=== PATIENT | male | born 1980 | race Caucasian/White ===

== ENCOUNTER → 2018-10-15 17:43 | Outpatient (CLI) | payer OTHER, SELFPAY ==
--- NOTE | 2018-10-15 17:47 | DI.MRI.S_ITS ---
PROCEDURE: MR WRIST LT WO CON INDICATIONS: DISPLACED FRACTURE OF MIDDLE THIRD OF LEFT NAVICULAR TECHNIQUE: Noncontrast coronal proton density fast spin echo and T2 fast spin echo with fat saturation; coronal 3-D gradient echo, axial T1 spin echo and T2 fast spin echo with fat saturation, sagittal T1 spin echo through the wrist. COMPARISON: [facility] Outside Film, CR, XR WRIST 3+ VIEWS LEFT, 07/13/2018, 13:29. [facility] Outside Film, CT, CT WRIST LEFT WITHOUT CONTRAST, 07/20/2018, 14:10. FINDINGS: Image quality: Excellent. Bones and cartilage: The carpal bones are normally aligned. There is a subacute appearing transverse fracture through proximal waist of scaphoid with mild marrow edema at within scaphoid. Well-corticated margin at the fracture site is seen with a 1 mm gap concerning for nonunion. There is no evidence of avascular necrosis of the scaphoid. No other area of abnormal marrow signal is seen. No other fracture or dislocation is noted. No evidence for avascular necrosis. Overlying cartilage surfaces appear normal. Carpal ligaments: The scapholunate and lunotriquetral ligaments appear intact. In the absence of intra-articular contrast, the extrinsic carpal ligaments are not well identified. On sagittal images, the pisohamate ligament appears intact. Triangular fibrocartilage complex: The triangular fibrocartilage appears intact. The adjacent meniscal homolog appears normal in the absence of intra-articular contrast. The extensor carpi ulnaris tendon is normal in location and morphology. Tendons and soft tissues: The carpal tunnel structures appear normal, including the median nerve. The ulnar nerve appears normal within Guyon's canal. All six extensor tendon compartments demonstrate normal morphology, without pathologic tendon sheath fluid. No soft tissue ganglion cysts. IMPRESSION: 1. Transverse fracture through waist of scaphoid with mild residual marrow edema. Well-corticated fracture margin with 1 mm gap concerning for nonunion. No definite MR evidence of avascular necrosis. No other area of abnormal marrow signal. 2. Triangular fibrocartilage complex is grossly intact. 3. Wrist tendons and ligaments are grossly intact.. Dictated by: Sebas Mora M.D. on 10/16/2018 at 8:39 Approved by: Sebas Mora M.D. on 10/16/2018 at 8:45
== END ==
PROVIDERS: Family Provider Family Medicine; PCP Family Medicine; Visit Provider Orthopaedic Surgery
DX: S62.022K Displaced fracture of middle third of navicular [scaphoid] bone of left wrist, subsequent encounter for fracture with nonunion (principal)
CPT/HCPCS: 73221

== ENCOUNTER 2020-11-11 14:46 | Emergency (ER) | payer OTHER, SELFPAY ==
[2020-11-11 15:13] VITALS: BP 160/107; PULSE 111; RESP 16; TEMP 36.9; O2SAT 97; BMI 25.1
== END 2020-11-11 15:38 | disposition left against medical advice (07) ==
PROVIDERS: Emergency Provider Emergency Medicine; Family Provider Family Medicine; PCP Family Medicine
CPT/HCPCS: 99281

== ENCOUNTER 2021-01-05 13:46 | Emergency (ER) | payer OTHER, SELFPAY ==
[2021-01-05] VITALS (11 sets, daily range): BP systolic 148–165; BP diastolic 82–97; PULSE 113–128; RESP 18–26; TEMP 36.1; O2SAT 94–99
--- NOTE | 2021-01-05 14:09 | ED_ITS ---
HPI - Neuro Symptoms/Deficit General Chief Complaint: Neuro Symptoms/Deficit Stated Complaint: confusion, red faced,cold sweats Time Seen by Provider: 01/05/21 14:03 Source: patient Mode of arrival: Ambulatory Limitations: no limitations History of Present Illness HPI Narrative: Patient is a 40-year-old male who arrives by private vehicle for evaluation of confusion, sweating, shaking, red face. He states the symptoms started this morning. He is unsure exactly when they started. He was at work when a occurred. He was told to come to the emergency department by his coworkers. He states that he is not quite as red face is he was earlier in the day but is still somewhat shaking and also sweating. He denies any other symptoms. Has never had anything like this in the past. Denies trauma. Denies drinking alcohol, denies any other drugs, and denies working with any chemicals at work. Related Data Home Medications Medication Instructions Recorded Confirmed No Known Home Medications 01/05/21 01/05/21 Allergies Allergy/AdvReac Type Severity Reaction Status Date / Time No Known Drug Allergies Allergy Verified 01/05/21 14:18 Review of Systems Constitutional Constitutional: Reports chills, Denies fever(s) and Denies headache(s) Eyes Eyes: Denies change in vision ENT Ears, Nose, Mouth, and Throat: Denies headache(s) and Denies sore throat Cardiovascular Cardiovascular: Denies chest pain, Denies rapid heart rate, Denies lightheadedness and Denies dyspnea Respiratory Respiratory: Denies cough and Denies dyspnea Gastrointestinal Gastrointestinal: Denies abdominal pain, Denies nausea and Denies vomiting Genitourinary Genitourinary: Denies dysuria Genitourinary: Denies dysuria Musculoskeletal Musculoskeletal: Denies numbness Integumentary/Breasts Comments: [place] Neurologic Neurologic: Reports confusion (Earlier today), Denies headache(s) and Denies numbness Comments: Shaking upper extremities Psychiatric Psychiatric: Denies anxiety and Reports confusion (Earlier today) Hematologic/Lymphatic Hematologic/Lymphatic: Denies easy bleeding and Denies easy bruising Allergic/Immunologic Allergic/Immunologic: Denies urticaria Patient History Medical History Sprain of right ankle Social History Smoking Status: Unknown if ever smoked Smoking Status: Unknown if ever smoked alcohol intake frequency: a few times a week Substance Use Type: does not use Exam Initial Vital Signs Initial Vital Signs: Vital Signs Temperature 96.9 F L 01/05/21 13:47 Pulse Rate 128 H 01/05/21 13:47 Respiratory Rate 22 01/05/21 13:47 Blood Pressure 158/92 H 01/05/21 13:47 Pulse Oximetry 98 01/05/21 13:47 Const General: cooperative and disheveled Limitations: mental status not altered HENCT Head: normal to inspection and No abrasion Eyes General: appearance normal, both eyes and all related structures Resp Effort & Inspection: not labored and tachypneic Auscultation: clear to auscultation bilaterally Cardio Rate: tachycardic Rhythm: regular rhythm Pulses: radial pulses present GI Inspection: non-distended Palpation: soft and No guarding Skin Lesions: no lesions Rashes: no rashes Neuro General: patient alert, patient awake and patient oriented x3 Cognition: normal cognition Speech: speech normal Motor: muscle tone normal throughout Sensory Exam: no sensory deficits noted Coordination: [id number] test normal Other: Trembling bilateral upper extremities Extrem General: normal to inspection and capillary refill normal Psych Appearance: disheveled Scores GCS [place] coma scale eye opening: Spontaneous [place] coma scale verbal response: Orientated [place] coma scale motor response: Obey commands [place] coma scale total score: 15 Course Orders Ordered: ED Orders 01/05/21 14:02 D Dimer Stat 01/05/21 14:05 Complete Blood Count AUTO DIFF Stat Comprehensive Metabolic Panel Stat Ethanol (ETOH) Stat Ketones (Beta-Hydroxybutyrate) Stat Lipase Stat Thyroid Stimulating Hormone Stat Troponin & CK Cardiac Panel Stat 01/05/21 15:32 CT angio chest PE protocol Stat 01/05/21 15:35 Urinalysis and Microscopic Stat Urine Drug Screen, Rapid Stat 01/05/21 16:05 Consult to [facility] - [place] Stat Venous Blood Gas Stat Discontinued Medications Sodium Chloride (Normal Saline 0.9%) 1,000 mls @ 1,000 mls/hr IV BOLUS ONE Stop: 01/05/21 15:12 Last Infusion: 01/05/21 15:33 Dose: 0 mls/hr Documented by: Admin: 01/05/21 14:21 Dose: 1,000 mls/hr Documented by: DIVYA Sodium Chloride (Normal Saline 0.9%) 1,000 mls @ 1,000 mls/hr IV BOLUS ONE Stop: 01/05/21 16:31 Last Infusion: 01/05/21 16:36 Dose: 0 mls/hr Documented by: Admin: 01/05/21 15:34 Dose: 1,000 mls/hr Documented by: DIVYA Lorazepam (Lorazepam 2 Mg/Ml Inj) 1 mg IV NOW ONE Stop: 01/05/21 14:10 Last Admin: 01/05/21 14:21 Dose: 1 mg Documented by: DIVYA Phenobarbital (Phenobarbital 65 Mg/Ml Vial) 260 mg IV NOW ONE Stop: 01/05/21 16:06 Last Admin: 01/05/21 16:39 Dose: 260 mg Documented by: DIVYA Vital Signs Vital signs: Vital Signs - 8 hr 01/05/21 13:47 01/05/21 14:28 01/05/21 14:30 Temperature 96.9 F L Pulse Rate 128 H 118 H 117 H Respiratory Rate 22 26 H 19 Blood Pressure 158/92 H 160/87 H Pulse Oximetry 98 95 94 01/05/21 15:00 01/05/21 15:27 01/05/21 15:30 Temperature Pulse Rate 118 H 125 H 123 H Respiratory Rate 21 18 20 Blood Pressure 163/93 H 156/89 H Pulse Oximetry 95 97 01/05/21 15:48 01/05/21 16:00 01/05/21 16:30 Temperature Pulse Rate 126 H 123 H 126 H Respiratory Rate 22 21 20 Blood Pressure 162/97 H 155/92 H 158/96 H Pulse Oximetry 96 95 97 01/05/21 17:00 01/05/21 17:30 Temperature Pulse Rate 122 H 113 H Respiratory Rate 18 23 Blood Pressure 165/97 H 148/82 H Pulse Oximetry 99 MDM - Neuro Symptoms/Deficit Lab Data Attestation: I reviewed the patient's lab results. Result diagrams: 01/05/21 14:05 01/05/21 14:05 Labs: Lab Results 01/05/21 01/05/21 01/05/21 Range/Units 14:02 14:05 14:05 WBC 9.9 (4.5-11.0) X10^3/uL RBC 4.98 (4.5-5.9) X10^6/uL Hgb 15.7 (13.5-17.5) g/dL Hct 46.1 (41-53) % MCV 92.7 (80-100) fL MCH 31.5 (26-34) PG MCHC 34.0 (30-36) % RDW 15.1 H (11.6-14.8) % Plt Count 212 (150-400) X10^3/uL Neut % (Auto) 84.1 H (50-75) % Lymph % (Auto) 7.2 L (25-40) % [place] % (Auto) 7.9 (3-14) % Eos % (Auto) 0.1 L (2-4) % Baso % (Auto) 0.7 (0-2) % Neut # (Auto) 8400 H (3322-1768) /uL Lymph # (Auto) 700 L (8063-3488) /uL [place] # (Auto) 800 (0-900) /uL Eos # (Auto) 0 (0-450) /uL Baso # (Auto) 100 (0-100) /uL D-Dimer 316 H (<230) ng/mL VBG pH (7.33-7.43) VBG pCO2 (45-50) mmHg VBG pO2 (35-45) mmHg VBG HCO3 (23-28) mmol/L VBG Total CO2 (24-29) mmol/L VBG O2 Saturation (70-75) % VBG Base Excess (0-4) mmol/L Sodium 134 L (137-145) mmol/L Potassium 4.1 (3.4-5.1) mmol/L Chloride 96 L (98-107) mmol/L Carbon Dioxide 16 L (22-32) mmol/L BUN 10 (9-20) mg/dL Creatinine 0.86 (0.66-1.25) mg/dL Estimated GFR > 60.0 (>60) mL/min BUN/Creatinine Ratio 11.6 (6-22) Glucose 175 H (70-100) mg/dL Calcium 9.6 (8.4-10.2) mg/dL Total Bilirubin 1.0 (0.2-1.3) mg/dL AST 85 H (17-59) IU/L ALT 94 H (<50) IU/L Alkaline Phosphatase 57 (38-126) U/L Total Creatine Kinase 205 H (55-170) U/L CK-MB (CK-2) 1.20 (<2.37) ng/mL CK-MB (CK-2) Rel Index 0.6 L (1.5-5.0) % Troponin I < 0.012 (0.01-0.034) ng/mL Total Protein 8.7 H (6.3-8.2) g/dL Albumin 5.4 H (3.5-5.0) g/dL Globulin 3.3 (1.7-4.1) g/dL Albumin/Globulin Ratio 1.6 (1.0-2.8) Lipase 85 (23-300) U/L TSH (0.47-4.68) uIU/mL Urine Color Urine Appearance Urine pH (4.5-8.0) Ur Specific [place] (1.000-1.035) Urine Protein (Negative) Urine Glucose (UA) (Negative) g/dL Urine Ketones (NEGATIVE) Urine Occult Blood (Negative) Urine Nitrate (Negative) Urine Bilirubin (NEGATIVE) Urine Urobilinogen (0.2) E.U./dL Ur Leukocyte Esterase (NEGATIVE) Urine RBC (0-5/HPF) Urine WBC (0-5/HPF) Uric Acid Crystals (None) Amorphous Sediment Urine Bacteria (None) Hyaline Casts (None) Ur Culture Indicated? U Opiates 300ng/mL cut (Negative) Ur Oxycodone Screen (Negative) Urine Methadone Screen (Negative) Ur Barbiturates Screen (Negative) U Tricyclic Antidepress (Negative) Ur Phencyclidine Scrn (Negative) Ur Amphetamines Screen (Negative) U Methamphetamines Scrn (Negative) Ur MDMA Scrn (Ecstasy) (Negative) U Benzodiazepines Scrn (Negative) Urine Cocaine Screen (Negative) U Marijuana (THC) Screen (Negative) Ethyl Alcohol < 10 ( - 10) mg/dL Ketones (<0.27) mmol/L 01/05/21 01/05/21 01/05/21 Range/Units 14:05 14:05 15:35 WBC (4.5-11.0) X10^3/uL RBC (4.5-5.9) X10^6/uL Hgb (13.5-17.5) g/dL Hct (41-53) % MCV (80-100) fL MCH (26-34) PG MCHC (30-36) % RDW (11.6-14.8) % Plt Count (150-400) X10^3/uL Neut % (Auto) (50-75) % Lymph % (Auto) (25-40) % [place] % (Auto) (3-14) % Eos % (Auto) (2-4) % Baso % (Auto) (0-2) % Neut # (Auto) (9049-3203) /uL Lymph # (Auto) (2748-9633) /uL [place] # (Auto) (0-900) /uL Eos # (Auto) (0-450) /uL Baso # (Auto) (0-100) /uL D-Dimer (<230) ng/mL VBG pH (7.33-7.43) VBG pCO2 (45-50) mmHg VBG pO2 (35-45) mmHg VBG HCO3 (23-28) mmol/L VBG Total CO2 (24-29) mmol/L VBG O2 Saturation (70-75) % VBG Base Excess (0-4) mmol/L Sodium (137-145) mmol/L Potassium (3.4-5.1) mmol/L Chloride (98-107) mmol/L Carbon Dioxide (22-32) mmol/L BUN (9-20) mg/dL Creatinine (0.66-1.25) mg/dL Estimated GFR (>60) mL/min BUN/Creatinine Ratio (6-22) Glucose (70-100) mg/dL Calcium (8.4-10.2) mg/dL Total Bilirubin (0.2-1.3) mg/dL AST (17-59) IU/L ALT (<50) IU/L Alkaline Phosphatase (38-126) U/L Total Creatine Kinase (55-170) U/L CK-MB (CK-2) (<2.37) ng/mL CK-MB (CK-2) Rel Index (1.5-5.0) % Troponin I (0.01-0.034) ng/mL Total Protein (6.3-8.2) g/dL Albumin (3.5-5.0) g/dL Globulin (1.7-4.1) g/dL Albumin/Globulin Ratio (1.0-2.8) Lipase (23-300) U/L TSH 1.08 (0.47-4.68) uIU/mL Urine Color Yellow Urine Appearance Clear Urine pH 5.0 (4.5-8.0) Ur Specific [place] 1.025 (1.000-1.035) Urine Protein 1+ H (Negative) Urine Glucose (UA) 1+ H (Negative) g/dL Urine Ketones 1+ H (NEGATIVE) Urine Occult Blood 2+ H (Negative) Urine Nitrate Negative (Negative) Urine Bilirubin Negative (NEGATIVE) Urine Urobilinogen 0.2 (0.2) E.U./dL Ur Leukocyte Esterase Negative (NEGATIVE) Urine RBC 5-10/hpf H (0-5/HPF) Urine WBC 0-1/hpf (0-5/HPF) Uric Acid Crystals Few H (None) Amorphous Sediment 1+ Urine Bacteria None seen (None) Hyaline Casts 1-5/lpf (None) Ur Culture Indicated? Cult not indicated U Opiates 300ng/mL cut (Negative) Ur Oxycodone Screen (Negative) Urine Methadone Screen (Negative) Ur Barbiturates Screen (Negative) U Tricyclic Antidepress (Negative) Ur Phencyclidine Scrn (Negative) Ur Amphetamines Screen (Negative) U Methamphetamines Scrn (Negative) Ur MDMA Scrn (Ecstasy) (Negative) U Benzodiazepines Scrn (Negative) Urine Cocaine Screen (Negative) U Marijuana (THC) Screen (Negative) Ethyl Alcohol ( - 10) mg/dL Ketones 0.47 H (<0.27) mmol/L 01/05/21 01/05/21 Range/Units 15:35 16:05 WBC (4.5-11.0) X10^3/uL RBC (4.5-5.9) X10^6/uL Hgb (13.5-17.5) g/dL Hct (41-53) % MCV (80-100) fL MCH (26-34) PG MCHC (30-36) % RDW (11.6-14.8) % Plt Count (150-400) X10^3/uL Neut % (Auto) (50-75) % Lymph % (Auto) (25-40) % [place] % (Auto) (3-14) % Eos % (Auto) (2-4) % Baso % (Auto) (0-2) % Neut # (Auto) (4109-5756) /uL Lymph # (Auto) (8498-5650) /uL [place] # (Auto) (0-900) /uL Eos # (Auto) (0-450) /uL Baso # (Auto) (0-100) /uL D-Dimer (<230) ng/mL VBG pH 7.43 (7.33-7.43) VBG pCO2 38.0 L (45-50) mmHg VBG pO2 32 L (35-45) mmHg VBG HCO3 25 (23-28) mmol/L VBG Total CO2 26 (24-29) mmol/L VBG O2 Saturation 94 H (70-75) % VBG Base Excess 1.0 (0-4) mmol/L Sodium (137-145) mmol/L Potassium (3.4-5.1) mmol/L Chloride (98-107) mmol/L Carbon Dioxide (22-32) mmol/L BUN (9-20) mg/dL Creatinine (0.66-1.25) mg/dL Estimated GFR (>60) mL/min BUN/Creatinine Ratio (6-22) Glucose (70-100) mg/dL Calcium (8.4-10.2) mg/dL Total Bilirubin (0.2-1.3) mg/dL AST (17-59) IU/L ALT (<50) IU/L Alkaline Phosphatase (38-126) U/L Total Creatine Kinase (55-170) U/L CK-MB (CK-2) (<2.37) ng/mL CK-MB (CK-2) Rel Index (1.5-5.0) % Troponin I (0.01-0.034) ng/mL Total Protein (6.3-8.2) g/dL Albumin (3.5-5.0) g/dL Globulin (1.7-4.1) g/dL Albumin/Globulin Ratio (1.0-2.8) Lipase (23-300) U/L TSH (0.47-4.68) uIU/mL Urine Color Urine Appearance Urine pH (4.5-8.0) Ur Specific [place] (1.000-1.035) Urine Protein (Negative) Urine Glucose (UA) (Negative) g/dL Urine Ketones (NEGATIVE) Urine Occult Blood (Negative) Urine Nitrate (Negative) Urine Bilirubin (NEGATIVE) Urine Urobilinogen (0.2) E.U./dL Ur Leukocyte Esterase (NEGATIVE) Urine RBC (0-5/HPF) Urine WBC (0-5/HPF) Uric Acid Crystals (None) Amorphous Sediment Urine Bacteria (None) Hyaline Casts (None) Ur Culture Indicated? U Opiates 300ng/mL cut Negative (Negative) Ur Oxycodone Screen Negative (Negative) Urine Methadone Screen Negative (Negative) Ur Barbiturates Screen Negative (Negative) U Tricyclic Antidepress Negative (Negative) Ur Phencyclidine Scrn Negative (Negative) Ur Amphetamines Screen Negative (Negative) U Methamphetamines Scrn Negative (Negative) Ur MDMA Scrn (Ecstasy) Negative (Negative) U Benzodiazepines Scrn Negative (Negative) Urine Cocaine Screen Negative (Negative) U Marijuana (THC) Screen Negative (Negative) Ethyl Alcohol ( - 10) mg/dL Ketones (<0.27) mmol/L Point of Care Testing Glucose POC [address] scan - chest: Radiologist's Impression: [address] [id number] Scan ReportSigned Patient: Han Castelan DMR#: [id number]: [id number]:[id number]/Sex: 40 / MDate of Service: 01/05/21Loc: EDAccession Number: [id number] Procedure: CT angio chest PE protocol Ordering Provider: Sourav Chavez D.O. PROCEDURE: CT ANGIO CHEST PE PROTOCOL INDICATIONS: Chest pain, shortness of breath, tachycardia TECHNIQUE: After the administration of intravenous contrast, 2 mm thick sections acquired from the pulmonary apices to the posterior costophrenic angles. 3-dimensional maximum intensity projection (MIP) coronal and sagittal reformats were then acquired through the thorax. For radiation dose reduction, the following was used: automated exposure control, adjustment of mA and/or kV according to patient size. COMPARISON: None. FINDINGS: Image quality: Excellent. Pulmonary arteries: Pulmonary arteries are normal in size, and demonstrate no intraluminal filling defects to suggest central pulmonary embolism. Lungs and pleura: Lungs are clear. No pleural effusions or pneumothorax. Central and peripheral airways are patent. Mediastinum: Heart size is normal, without pericardial effusion. No medi astinal or hilar adenopathy. Thoracic aorta is normal in caliber and enhancement. Esophagus is normal in caliber, without hiatal hernia. Bones and chest wall: No suspicious bony lesions. Ribs and thoracic spine appear intact throughout. Thyroid gland appears normal. No axillary or supraclavicular adenopathy. Abdomen: Visualized upper abdominal solid organs appear normal in the early a rterial phase of enhancement except for hepatic steatosis that is prominent throughout the liver parenchyma.. IMPRESSION: No pulmonary embolus seen, source of chest pain and shortness of breath is not identified. Pronounced hepatic steatosis. Dictated by: Chester Guerrero M.D. on 01/05/2021 at 15:53 Approved by: Chester Guerrero M.D. on 01/05/2021 at 15:56 ECG Data Attestation: I personally reviewed and interpreted this ECG as follows: Prior ECG tracings: not available for review Interpretation: Sinus tachycardia Ventricular rate 121 Normal axis Normal QRS Normal QTC No ST T wave changes MDM Narrative Medical decision making narrative: When the patient arrived he was diaphoretic, did have bilateral upper extremity shaking and was tachycardic. The rest of his exam was relatively unremarkable. Was somewhat difficult to obtain history from the patient. Initial labs were unremarkable to include his alcohol. He was not acidotic. His symptoms do not fit any specific toxidrome is a he denied any toxic ingestions or working with any chemicals at work. He was tachycardic and tachypneic so a CT scan of his chest was ordered for evaluation of pulmonary embolism which was unremarkable. After this extensive workup for received a call from his employer who informed us that Han has had issues with alcohol in the past and they feel that potentially he is withdrawing from alcohol. They state that they have been over to his house in the past and there were many alcohol bottles around. Patient states that he has not drank in the past 2 days. He received Ativan and phenobarb which did seem to improve his symptoms somewhat. It also appears that he may have been hallucinating this morning but he does not have any signs or symptoms of that now. He is afebrile. He was see n by social work. The patient states that he does not have an alcohol problem. He declined multiple offers by myself and social Work for admission and detox however he declined. We discussed the concerns that I have about alcohol withdrawal and he expressed understanding of this. He is alert oriented x3, GCS 15 in my opinion has capacity make decisions. He was given information for alcoholics anonymous. We discussed return precautions and follow-up instructions. He expressed understanding and agreement. Discharge Plan Departure Patient Disposition: Home Clinical Impression: Alcohol withdrawal Instructions: DI for Drug or Alcohol Withdrawal Activity Restrictions/Additional Instructions: I do recommend that you return to the emergency department for any new or worsening symptoms. I also recommend you contact your primary provider for follow-up. Take the resources that were given to you by the director of social work. Return to the emergency department for any new or worsening symptoms Prescriptions: No Action No Known Home Medications RF: 0
[2021-01-05 14:20] LABS: Add Manual Diff / Slide Review NO; Basophils Absolute Auto 100 /uL (0-100); Basophils Percent Auto 0.7 % (0-2); Eosinophils Absolute Auto 0 /uL (0-450); Eosinophils Percent Auto 0.1 % (2-4); Hematocrit 46.1 % (41-53); Hemoglobin 15.7 g/dL (13.5-17.5); Lymphocytes Absolute Auto 700 /uL (1100-4500); Lymphocytes Percent Auto 7.2 % (25-40); Mean Corpuscular Hemoglobin 31.5 PG (26-34); Mean Corpuscular Volume 92.7 fL (80-100); Monocytes Absolute Auto 800 /uL (0-900); Monocytes Percent Auto 7.9 % (3-14); Neutrophils Absolute Auto 8400 /uL (1500-7000); Neutrophils Percent Auto 84.1 % (50-75); Platelet Count 212 X10^3/uL (150-400); Red Blood Cell Count 4.98 X10^6/uL (4.5-5.9); Red Cell Distribution Width 15.1 % (11.6-14.8); White Blood Cell Count 9.9 X10^3/uL (4.5-11.0)
[2021-01-05] MEDS: SODIUM CHLORIDE 0.9% 1,000 ML 1000 ML IV ×2 (14:21→15:34)
[2021-01-05] MEDS: LORazepam 2 MG/ML INJ 1 MG IV (14:21)
[2021-01-05 14:31] LABS: Alanine Aminotransferase 94 IU/L (<50); Albumin 5.4 g/dL (3.5-5.0); Albumin Globulin Ratio 1.6 (1.0-2.8); Alkaline Phosphatase 57 U/L (38-126); Aspartate Aminotransferase 85 IU/L (17-59); BUN Creatinine Ratio 11.6 (6-22); Blood Urea Nitrogen 10 mg/dL (9-20); Calcium 9.6 mg/dL (8.4-10.2); Carbon Dioxide 16 mmol/L (22-32); Chloride 96 mmol/L (98-107); Creatine Kinase 205 U/L (55-170); Estimated Glomerular Filt Rate > 60.0 mL/min (>60); Ethanol (ETOH) < 10 mg/dL; Globulin 3.3 g/dL (1.7-4.1); Glucose 175 mg/dL (70-100); HEMOLYSIS < 15 (0-50); Lipase 85 U/L (23-300); Potassium 4.1 mmol/L (3.4-5.1); Sodium 134 mmol/L (137-145); Total Protein 8.7 g/dL (6.3-8.2)
[2021-01-05 14:42] LABS: Troponin I < 0.012 ng/mL (0.01-0.034)
[2021-01-05 14:46] LABS: CKMB % Relative Index 0.6 % (1.5-5.0)
[2021-01-05 15:05] LABS: Thyroid Stimulating Hormone 1.08 uIU/mL (0.47-4.68)
[2021-01-05 15:24] LABS: D Dimer 316 ng/mL (<230)
--- NOTE | 2021-01-05 15:32 | DI.CT.S_ITS ---
PROCEDURE: CT ANGIO CHEST PE PROTOCOL INDICATIONS: Chest pain, shortness of breath, tachycardia TECHNIQUE: After the administration of intravenous contrast, 2 mm thick sections acquired from the pulmonary apices to the posterior costophrenic angles. 3-dimensional maximum intensity projection (MIP) coronal and sagittal reformats were then acquired through the thorax. For radiation dose reduction, the following was used: automated exposure control, adjustment of mA and/or kV according to patient size. COMPARISON: None. FINDINGS: Image quality: Excellent. Pulmonary arteries: Pulmonary arteries are normal in size, and demonstrate no intraluminal filling defects to suggest central pulmonary embolism. Lungs and pleura: Lungs are clear. No pleural effusions or pneumothorax. Central and peripheral airways are patent. Mediastinum: Heart size is normal, without pericardial effusion. No mediastinal or hilar adenopathy. Thoracic aorta is normal in caliber and enhancement. Esophagus is normal in caliber, without hiatal hernia. Bones and chest wall: No suspicious bony lesions. Ribs and thoracic spine appear intact throughout. Thyroid gland appears normal. No axillary or supraclavicular adenopathy. Abdomen: Visualized upper abdominal solid organs appear normal in the early arterial phase of enhancement except for hepatic steatosis that is prominent throughout the liver parenchyma.. IMPRESSION: No pulmonary embolus seen, source of chest pain and shortness of breath is not identified. Pronounced hepatic steatosis. Dictated by: Chester Guerrero M.D. on 01/05/2021 at 15:53 Approved by: Chester Guerrero M.D. on 01/05/2021 at 15:56
[2021-01-05 15:41] LABS: Bacteria Urine None Seen
[2021-01-05 15:43] LABS: Appearance Urine UA CLEAR; Bilirubin Urine UA NEGATIVE (NEGATIVE); Color Urine UA YELLOW; Glucose Urine UA 1+ g/dL (Negative); Ketones Urine UA 1+ (NEGATIVE); Leukocyte Esterase Urine UA NEGATIVE (NEGATIVE); Nitrite Urine UA NEGATIVE (Negative); Occult Blood Urine UA 2+ (Negative); Protein Urine UA 1+ (Negative); Specific Gravity Urine UA 1.025 (1.000-1.035); Urobilinogen Urine UA 0.2 E.U./dL (0.2)
[2021-01-05 15:49] LABS: UR Morphine/Opiate cutoff 300 Negative (Negative); Ur Creatinine Normal (Normal); Ur Specific Gravity Normal (Normal); Urine Amphetamines Negative (Negative); Urine Barbiturates Negative (Negative); Urine Benzodiazepines Negative (Negative); Urine Cocaine Negative (Negative); Urine MDMA Negative (Negative); Urine Methadone Negative (Negative); Urine Methamphetamines Negative (Negative); Urine Oxycodone Negative (Negative); Urine Phencyclidine Negative (Negative); Urine Tetrahydrocannabinol Negative (Negative); Urine Tricyclic Antidepressant Negative (Negative); Urine pH Normal (Normal)
[2021-01-05 16:09] LABS: Ketones (Beta-Hydroxybutyrate) 0.47 mmol/L (<0.27)
[2021-01-05 16:10] LABS: Amorphous Sediment Urine 1+; Culture Indicated Urine Cult Not Indicated; Hyaline Casts Urine 1-5/LPF; RBC Urine 5-10/HPF (0-5/HPF); Uric Acid Crystals Urine Few; WBC Urine 0-1/HPF (0-5/HPF)
[2021-01-05 16:26] LABS: HCO3 VBG 25 mmol/L (23-28); PO2 VBG 32 mmHg (35-45); Total CO2 VBG 26 mmol/L (24-29); pH VBG 7.43 (7.33-7.43)
[2021-01-05] MEDS: PHENobarbital 65 MG/ML VIAL 260 MG IV (16:39)
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
[2021-01-06 03:08] LABS: Oxygen Saturation VBG 64 % (70-75)
== END 2021-01-05 18:02 | disposition home or self-care (01) ==
PROVIDERS: Emergency Provider Emergency Medicine; Family Provider Family Medicine
DX: F10.239 Alcohol dependence with withdrawal, unspecified (principal); R07.9 Chest pain, unspecified; R00.0 Tachycardia, unspecified; R06.02 Shortness of breath
CPT/HCPCS: 36415; 71275; 80053; 80305; 80320; 81001; 82009; 82550; 82553; 82805; 82962; 83690; 84443; 84484; 85025; 85379; 93005; 96361; 96374; 96375; 99284; J2060; J2560; Q9967